=== PATIENT | male | born 1950 | race Caucasian/White ===

== ENCOUNTER → 2018-12-14 | Outpatient (REF) | payer MEDICARE, OTHER ==
[~2018-12-14] MED LIST: ASPI81TA85 PO; HYZA50TA2 PO; LIPI80TA PO; PLAV1TAB2 PO; TOPR100T PO; [UNRECOGNIZED DRUG - CODE] PO
[2018-12-14 13:54] LABS: FOLATE 10.8 NG/ML; PERCENT SATURATION 28.1 % (19.7-50.0)
== END ==
LOC: M LAB REF 12:50
PROVIDERS: ATTEND Internal Medicine Nephrology
DX: D64.9 Anemia, unspecified (principal)